=== PATIENT | female | born 1980 | race African-American/Black ===

== ENCOUNTER 2016-08-22 14:26 | Emergency (ER) | payer OTHER ==
[~2016-08-22] VITALS: Ht 160 cm; Wt 61.2 kg
[2016-08-22 14:45] LABS: URINE BILIRUBIN NEGATIVE (Negative); URINE BLOOD 3+ (Negative); URINE COLOR YELLOW; URINE GLUCOSE-RANDOM* NEGATIVE (Negative); URINE KETONES NEGATIVE (Negative); URINE LEUKOCYTES-REFLEX 2+ (Negative); URINE PROTEIN (DIPSTICK) NEGATIVE (Negative); URINE UROBILINOGEN 0.2 E.U./dl (0.2-1.0)
[2016-08-22 15:03] LABS: CASTS None Seen /LPF (None Seen); SQUAMOUS 4-10 Moderate /LPF (0-3)
[2016-08-22 15:04] LABS: CRYSTALS None Seen /LPF (None Seen); URINE RBC >20 Many /HPF (0-2); URINE WBC-REFLEX 6-15 Few /HPF (0-5)
[2016-08-22] MEDS ORDERED: VITAMIN D1000 UNI1 PO (16:06)
[2016-08-22] MEDS ORDERED: MULTI-DAY PLUS1 EACH PO (16:07)
[2016-08-22] MEDS ORDERED: TORADOL 10 MG T10 MG PO (16:37)
[2016-08-22 17:20] VITALS: BP 110/66
[2016-08-23 15:10] LABS: CHLAMYDIA TRACHOMATIS-PCR Negative (Negative); NEISSERIA GONORRHEA-PCR Negative (Negative)
== END 2016-08-22 17:20 | disposition home or self-care (01) ==
LOC: ER 14:26
PROVIDERS: Emergency Medicine
DX: N94.89 Other specified conditions associated with female genital organs and menstrual cycle (principal)